=== PATIENT | male | born 1965 | race Caucasian/White ===

== ENCOUNTER 2017-04-07 12:59 | Emergency (ER) | payer BC ==
[2017-04-07 13:25] VITALS: BP 148/93
--- NOTE | 2017-04-07 14:36 | RAD ---
INDICATION: Right hand injury COMPARISON: None TECHNIQUE: AP, lateral, and oblique views were obtained. FINDINGS: The bony structures, joint spaces, and soft tissues are normal for age. IMPRESSION: NEGATIVE EXAMINATION.
--- NOTE | 2017-04-07 14:52 | UC ---
Upper Extremity HPI - HPI Summary HPI Summary: This is a 51 yo male with HTN, CA, GERD, neuropathy who presents for evaluation of a R hand injury. He injured the hand ~1 week ago. He had a bad dream that there was a home intruder and punched the dresser. His hand became severely swollen and painful. There is a laceration over his 3rd MCPJ that he has been treating with antibiotic ointment and covering with a Bandaid. Denies increasing redness, fever or chills. - History of Current Complaint Chief Complaint: UCUpperExtremity Stated Complaint: HAND INJURY Time Seen by Provider: 04/07/17 14:12 - Allergies/Home Medications Allergies/Adverse Reactions: Allergies Allergy/AdvReac Type Severity Reaction Status Date / Time Levofloxacin [From Levaquin] Allergy Severe numbness Verified 01/14/16 06:22 in arm, chest pain PMH/Surg Hx/FS Hx/Imm Hx Cardiovascular History: Hypertension GI/ History: Gastroesophageal Reflux Neurological History: Other Other Neurological History: neuropathy Cancer History: Other Other Cancer History: unspecified - Surgical History Surgical History: Yes Surgery Procedure, Year, and Place: Skin cancer removed; tonsillectomy. LASIK EYE SURGERY. EGD AND COLONOSCOPY - Family History Known Family History: Positive: Cardiac Disease, Diabetes - Social History Alcohol Use: Occasionally Substance Use Type: None Smoking Status (MU): Never Smoked Tobacco Review of Systems Constitutional: Negative Skin: Negative Eyes: Negative ENT: Negative Respiratory: Negative Cardiovascular: Negative Gastrointestinal: Negative Genitourinary: Negative Motor: Negative Neurovascular: Negative Musculoskeletal: Arthralgia Neurological: Negative Psychological: Negative All Other Systems Reviewed And Are Negative: Yes Physical Exam Triage Information Reviewed: Yes Appearance: Well-Appearing Vital Signs: Initial Vital Signs Temp 98.5 F 04/07/17 13:20 Pulse 63 04/07/17 13:20 Resp 16 04/07/17 13:20 BP 148/93 04/07/17 13:20 Pulse Ox 100 04/07/17 13:20 Vital Signs Reviewed: Yes ENT Exam: Normal Neck exam: Normal Respiratory Exam: Normal Respiratory: Positive: Lungs clear. Negative: Crackles, Rhonchi, Wheezing Cardiovascular Exam: Normal Cardiovascular: Positive: RRR, No Murmur Abdominal Exam: Normal Musculoskeletal: Positive: ROM Intact, Other: - edema over the 3rd MCPJ with limited pain to palpation Neurological: Positive: Alert Psychological: Positive: Normal Response To Family Skin: Positive: Other - healing laceration over the 3rd MCPJ, no associated erythema or drainage Diagnostics - Laboratory Diagnostic Studies Completed/Ordered: XR hand - no fracture Upper Extremity Course/Dx - Course Course Of Treatment: This is a 51 yo male who sustained an injury to his R hand 1 week ago. XR negative and wound healing is appropriate. No change to management recommended at this time. - Differential Dx/Diagnosis Differential Diagnosis/HQI/PQRI: Arthritis, Bursitis, Fracture (Closed), Strain , Sprain Provider Diagnoses: 1. R Hand contusion Discharge - Discharge Plan Condition: Stable Disposition: HOME Patient Education Materials: Contusion in Adults (ED) Referrals: Gato Cr MD [Primary Care Provider] - If Needed Additional Instructions: Instructions: 1. Continue current wound care 2. No additional treatment necessary
== END 2017-04-07 14:48 | disposition home or self-care (01) ==
LOC: UCEAST 12:59
DX: S60.221D Contusion of right hand, subsequent encounter (principal); W22.03XD Walked into furniture, subsequent encounter
CPT/HCPCS: 99211; G0463

== ENCOUNTER 2018-08-16 11:31 | Emergency (ER) | payer BC ==
--- OUTSIDE RECORDS SUMMARY | 2018-08-16 11:37 | XMS REPORT | Continuity of Care Document ---
:1965 External Reference #:[id number] Author Name Benja Bryan Care Team Providers Name Role Phone Gato Cr MD Primary Care Physician Unavailable Payers Type Date Identification Numbers Payment Provider Subscriber Policy Number: [id number] [employer] Gladys Bell PayID: [id number] [address] [address] [place] [address] Advance Directives Description No Information Available Problems Date Description Provider Status Onset: 12/31/2013 Congenital spondylolisthesis Conor La M.D. 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 Active Onset: 09/01/2016 Restless legs Brenda Ding M.D. Active Onset: 07/12/2018 Arthralgia of the ankle and/or foot Jarod Echevarria M.D. 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 ETOH Use Occasionally consumes alcohol Recreational Drug Use Negative For Denies Drug Use Tobacco Use Start: Unknown Patient has never smoked Smoking Status Reviewed: 07/24/18 Patient has never smoked Allergies, Adverse Reactions, Alerts Date Description Reaction Status Severity Comments 12/31/2013 Levaquin Chest Pain Active Medications Medication Date Status Form Strength Qnty SIG Indications Ordering Provider Sol 09/07/ Active Caps DR 30mg 270ca 3 tabs by G60.8 Jarod 2015 Part ps mouth Chepe Echevarria daily Gabapentin 05/20/ Active Tablets 600mg 75tab 2.5 tabs G60.9 Jarod 2013 s by mouth Chepe Echevarria every day at bedtime as directed Prilosec / Active Capsules DR 20mg 90cap 1 by mouth Unknown 0000 s every day Benicar / Active Tablets 20mg 1 by mouth Unknown 0000 every day Simvastatin / Active Tablets 5mg 1 by mouth Unknown 0000 daily Ropinirole 09/01/ Hx Tablets 0.25mg 120ta 1-4 tabs G60.9 Brenda [facility] 2017 - bs by mouth Timur, 04/05/ every at M.D. 2017 at bedtime as directed Nasonex 12/31/ Hx Suspension 50mcg/Act 1 spray Conor Bryant 2013 - angel each Abhinav, 12/31/ side every M.D. 2013 day Gabapentin 12/31/ Hx Capsules 100mg 90cap 1 po qhs 356.9 Conor Bryant 2014 - s to start Pollack, and december.D. 2013 increase as tolerated to 2 po qhs then 3 po qhs or as needed to control pain up to 3 po tid prn Nasonex / Hx Suspension 50mcg/Act 1Mon 1 spray Unknown 0000 - angel each 12/31/ side every 2013 day Danica-D 12 / Hx Tablets ER 60-120mg 28tab take one Unknown Hour Allergy& 0000 - 12HR s tab by Congestion 12/31/ mouth 2013 twice a day as needed Meloxicam / Hx Tablets 15mg 1 by mouth Unknown 0000 - daily 2014 Zyrtec / Hx Capsules 10mg 1 by mouth Unknown Allergy 0000 - every day 2015 Immunizations Description No Information Available Vital Signs Date Vital Result Comment 07/24/2018 8:35am Height 72 inches 6'0" Weight 230.00 lb Heart Rate 60 /min BP Systolic Sitting 120 mmHg BP Diastolic Sitting 78 mmHg Pain Level 4 BMI (Body Mass Index) 31.2 kg/m2 07/12/2018 2:28pm Height 72 inches 6'0" Weight 229.00 lb Heart Rate 88 /min BP Systolic Sitting 118 mmHg large adult cuff left arm BP Diastolic Sitting 72 mmHg large adult cuff left arm Respiratory Rate 16 /min BMI (Body Mass Index) 31.1 kg/m2 04/06/2017 2:42pm Height 72 inches 6'0" Weight 220.00 lb Heart Rate 62 /min BP Systolic Sitting 132 mmHg BP Diastolic Sitting 80 mmHg Respiratory Rate 16 /min BMI (Body Mass Index) 29.8 kg/m2 09/01/2016 3:51pm Height 72 inches 6'0" Weight 230.00 lb Heart Rate 56 /min BP Systolic Sitting 136 mmHg BP Diastolic Sitting 90 mmHg Respiratory Rate 14 /min BMI (Body Mass Index) 31.2 kg/m2 09/07/2015 8:51am Height 72 inches 6'0" Weight 228.00 lb Heart Rate 60 /min BP Systolic Sitting 132 mmHg BP Diastolic Sitting 88 mmHg Respiratory Rate 14 /min BMI (Body Mass Index) 30.9 kg/m2 02/05/2015 2:55pm Height 72 inches 6'0" Heart Rate 64 /min BP Systolic Sitting 134 mmHg BP Diastolic Sitting 76 mmHg Respiratory Rate 16 /min 11/06/2014 3:33pm Height 72 inches 6'0" Weight 230.00 lb Heart Rate 69 /min BP Systolic 144 mmHg BP Diastolic 90 mmHg BMI (Body Mass Index) 31.2 kg/m2 10/14/2014 3:11pm Height 72 inches 6'0" Heart Rate 68 /min BP Systolic Sitting 124 mmHg BP Diastolic Sitting 82 mmHg Respiratory Rate 16 /min 10/02/2014 10:17am Height 72 inches 6'0" Weight 230.00 lb Heart Rate 72 /min BP Systolic Sitting 126 mmHg BP Diastolic Sitting 78 mmHg Respiratory Rate 16 /min BMI (Body Mass Index) 31.2 kg/m2 07/08/2014 1:11pm Height 72 inches 6'0" Weight 230.38 lb Heart Rate 68 /min BP Systolic Sitting 140 mmHg BP Diastolic Sitting 82 mmHg Respiratory Rate 16 /min BMI (Body Mass Index) 31.2 kg/m2 05/20/2014 10:04am Height 72 inches 6'0" Weight 227.00 lb Heart Rate 64 /min BP Systolic Sitting 130 mmHg BP Diastolic Sitting 80 mmHg Respiratory Rate 16 /min BMI (Body Mass Index) 30.8 kg/m2 12/31/2013 10:57am Height 72 inches 6'0" Weight 227.00 lb BP Systolic 132 mmHg BP Diastolic 88 mmHg Pain Level 3 legs, feet BMI (Body Mass Index) 30.8 kg/m2 Results Test Date Facility Test Result H/L Range Note Comp Metabolic Panel 03/20/2015 Sodium 137 mmol/L N 133-145 Potassium 4.5 mmol/L N 3.5-5.0 Chloride 104 mmol/L N 101-111 Co2 Carbon Dioxide 28 mmol/L N 22-32 Anion Gap 5 mmol/L N 2-11 Glucose 88 mg/dL N 70-100 Blood Urea Nitrogen 14 mg/dL N 6-24 Creatinine 1.17 mg/dL N 0.67-1.17 BUN/Creatinine Ratio 12.0 N 8-20 Calcium 9.4 mg/dL N 8.6-10.3 Total Protein 6.8 g/dL N 6.4-8.9 Albumin 4.6 g/dL N 3.2-5.2 Globulin 2.2 g/dL N 2-4 Albumin/Globulin Ratio 2.1 N 1-3 Total Bilirubin 0.60 mg/dL N 0.2-1.0 Alkaline Phosphatase 48 U/L N 34-104 Alt 26 U/L N 7-52 Ast 22 U/L N 13-39 Egfr Non- 66.0 N >60 Egfr 84.9 N >60 1 Laboratory test finding 03/20/2015 Lyme Disease Serology Negative N Negative 2 Laboratory test finding 06/27/2014 Methylmalonic Acid 0.19 nmol/mL N <= 0.40 3 [place] (Anti-Nuclear AB) Screen Negative N Negative Erythrocyte Sed Rate 9 mm/Hr N 0-14 C Reactive Protein 1.68 mg/L N < 5.00 4 Protein Electrophoresis 06/27/2014 Total Protein(Pep) 6.8 g/dL N 6.3 - 7.9 Albumin 3.7 g/dL N 3.4-4.7 Alpha-1 Globulin 0.2 g/dL N 0.1-0.3 Alpha-2 Globulin 0.8 g/dL N 0.6-1.0 Beta Globulin 1.0 g/dL N 0.7-1.2 Gamma Globulin 1.1 g/dL N 0.6-1.6 Albumin/Globulin Ratio 1.18 N Impression See Comment N 5 Ssa/SSB Abs Igg 06/27/2014 SS-A/Ro Antibody <0.2 U N 6 SS-B/La Antibody <0.2 U N 7 1 Because ethnic data is not always readily available, this report includes an eGFR for both -Americans and non- Americans. The National Kidney Disease Education Program (NKDEP) does not endorse the use of the MDRD equation for patients that are not between the ages of 18 and 70, are , have extremes of body size, muscle mass, or nutritional status, or are non- or non-. According to the National Kidney Foundation, irrespective of diagnosis, the stage of the disease is based on the level of kidney function: Stage Description GFR(mL/min/1.73 m(2)) 1 Kidney damage with normal or decreased GFR 90 2 Kidney damage with mild decrease in GFR 60-89 3 Moderate decrease in GFR 30-59 4 Severe decrease in GFR 15-29 5 Kidney failure <15 (or dialysis) 2 Serologic response to B. burgdorferi infection is not detected, but cannot rule out early infection during which low or undetectable antibody levels to B. burgdorferi may be present. If clinically indicated, a new serum specimen should be submitted in 7-14 days. Test Performed by: [place] [address] Public Health Worker: Sukhjinder Mcgowan II, M.D., Ph.D. 3 Test Performed by: [place] [address] Public Health Worker: Yonathan Sams M.D. 4 Acute inflammation: >10.00 5 RESULT: No apparent monoclonal protein on serum electrophoresis. Test Performed by: [place] [address] Public Health Worker: Yonathan Sams M.D. 6 REFERENCE VALUE <1.0 (Negative) 7 REFERENCE VALUE <1.0 (Negative) Test Performed by: [facility] - [address] [address] Public Health Worker: Yonathan Sams M.D. Procedures Date Code Description Status 10/14/2014 18855 Nerve Conduction 03-04 Studies Completed 07/08/2014 21716 Nerve Conduction 07-08 Studies Completed Encounters Type Date Location Provider Dx Diagnosis Office Visit 07/12/2018 [facility] Jarod Echevarria, G60.0 Hereditary motor 2:30p [facility] and sensory neuropathy G25.81 Restless legs syndrome M25.571 Pain in right ankle and joints of right foot Office Visit 04/06/2017 2:45p Oliva Booth G60.0 Hereditary motor [facility] Ding M.D. and sensory neuropathy G25.81 Restless legs syndrome Office Visit 09/01/2016 3:45p Oliva Booth G25.81 Restless legs [facility] Ding M.D. syndrome G60.0 Hereditary motor and sensory neuropathy Office Visit 09/07/2015 [place]/Oliva Booth G60.8 Other hereditary 8:45a [facility] Ding and idiopathic Pinion Staker neuropathies Office Visit 02/05/2015 Oliva Booth 356.9 Neuropathy 3:15p [facility] Ding M.D. Peripheral Hereditary Idiopathic Unspec Office Visit 11/06/2014 [facility] 724.02 Spinal Stenosis , 3:30p Of Jett Gomez M.D. Lumbar Region, W/O Neurogenic Claudication 724.4 Neuritis Or Radiculitis Thoracic Or Lumbosacral Unspec Office Visit 10/14/2014 3:00p Oliva Booth 356.9 Neuropathy [facility] Ding M.D. Peripheral Hereditary Idiopathic Unspec 724.4 Neuritis Or Radiculitis Thoracic Or Lumbosacral Unspec Office Visit 10/02/2014 10:15a Oliva Ding 724.2 Lumbago [facility] 356.8 Neuropathy Other Spec Idiopathic Peripheral Office 05/20/2014 Oliva Booth 356.9 Neuropathy Peripheral Visit 10:00a [facility] Ding M.D. Hereditary Idiopathic Unspec Office 12/31/2013 Neurosurgery Conor Bryant 756.12 Spondylolisthesis Visit 11:00a [facility] La M.D. Congenital 756.11 Spondylolysis Lumbosacral Region Congenital 356.9 Neuropathy Peripheral Hereditary Idiopathic Unspec Office Visit 07/01/2010 Neurosurgery Joaquin Booth 756.12 Spondylolisthesis 11:00a [facility] Powers M.D. Congenital Plan of Treatment Future Appointment(s):10/23/2018 8:00 am - Gato Gomez M.D. [facility]/10/2019 8:00 am - Jarod Echevarria M.D. at [facility]07/24/2018 - Gato Gomez M.D.G60.0 Hereditary motor and sensory neuropathyNew Xrays:Ankle Right 2VWS, Ordered: 07/24/18oot Right 2 VWS, Ordered: 07/24/18New Therapy:Rehab ReferralFollow up:3 months
[2018-08-16 11:58] VITALS: BP 148/87
--- NOTE | 2018-08-16 12:17 | UC ---
Respiratory Complaint HPI - HPI Summary HPI Summary: 52 yo male presents with flu like symptoms. He tells me that for the last 3-4 days he has been having fatigue, body aches, and a dry cough. His was seen this morning and dx'd with the flu - per pt. He is here requesting treatment for the flu. Has felt hot/cold, but has not taken his temperature. Denies SOB, chest pain, abdominal pain, n/v. - History of Current Complaint Chief Complaint: UCRespiratory Stated Complaint: CHEST CONGESTION COUGH Time Seen by Provider: 08/16/18 12:16 Hx Obtained From: Patient Onset/Duration: Gradual Onset Severity Initially: Mild Severity Currently: Mild Pain Intensity: 4 Character: Cough: Nonproductive - Allergies/Home Medications Allergies/Adverse Reactions: Allergies Allergy/AdvReac Type Severity Reaction Status Date / Time levofloxacin [From Levaquin] Allergy numbness Verified 08/16/18 11:59 and chest pain PMH/Surg Hx/FS Hx/Imm Hx Endocrine History: Dyslipidemia GI/ History: Gastroesophageal Reflux - Surgical History Surgical History: Yes Surgery Procedure, Year, and Place: Skin cancer removed; tonsillectomy. LASIK EYE SURGERY. EGD AND COLONOSCOPY - Family History Known Family History: Positive: Cardiac Disease, Diabetes - Social History Occupation: Employed Full-time Lives: With Family Alcohol Use: Occasionally Substance Use Type: None Smoking Status (MU): Never Smoked Tobacco Review of Systems All Other Systems Reviewed And Are Negative: Yes Constitutional: Positive: Fatigue, Other - Body aches Skin: Positive: Negative Eyes: Positive: Negative ENT: Positive: Negative Respiratory: Positive: Cough Cardiovascular: Positive: Negative Gastrointestinal: Positive: Negative Neurovascular: Positive: Negative Neurological: Positive: Negative Psychological: Positive: Negative Physical Exam - Summary Physical Exam Summary: GENERAL: NAD. WDWN. No pain distress. SKIN: No rashes, sores, lesions, or open wounds. HEENT: Head: AT/NC Eyes: EOM intact. Conjunctiva clear without inflammation or discharge. Ears: Hearing grossly normal. TMs intact, no bulging, erythema, or edema. Nose: Nasal mucosa pink and moist. NTTP maxillary and frontal sinus. Throat: Posterior oropharynx without exudates, erythema, or tonsillar enlargement. Uvula midline. NECK: Supple. Nontender. No lymphadenopathy. CHEST: CTAB. No r/r/w. No accessory muscle use. Breathing comfortably and in no distress. CV: RRR. Without m/r/g. Pulses intact. Cap refill <2seconds NEURO: Alert. PSYCH: Age appropriate behavior. Triage Information Reviewed: Yes Vital Signs: Initial Vital Signs Temp 99.5 F 08/16/18 11:56 Pulse 100 08/16/18 11:56 Resp 20 08/16/18 11:56 BP 148/87 08/16/18 11:56 Pulse Ox 97 08/16/18 11:56 Vital Signs Reviewed: Yes Diagnostic Evaluation - Laboratory O2 Sat by Pulse Oximetry: 97 Respiratory Course/Dx - Course Course Of Treatment: Given that his was positive for Flu A this morning - pt declined testing today. Will treat with tamiflu for presumptive flu. - Differential Dx/Diagnosis Provider Diagnosis: Influenza Discharge - Sign-Out/Discharge Documenting (check all that apply): Patient Departure All imaging exams completed and their final reports reviewed: No Studies - Discharge Plan Condition: Stable Disposition: HOME Prescriptions: Benzonatate CAP* [Tessalon 100 MG CAP*] 100 mg PO TID PRN #21 cap PRN Reason: Cough Oseltamivir CAP* [Tamiflu CAP*] 75 mg PO BID #10 cap Patient Education Materials: Influenza (DC) Forms: *Work Release Referrals: Gato Cr MD [Primary Care Provider] - Additional Instructions: If you develop a fever, shortness of breath, chest pain, new or worsening symptoms - please call your PCP or go to the ED. Your blood pressure was high at todays visit. Please see your primary provider within 4 weeks for recheck and re-evaluation. - Billing Disposition and Condition Condition: STABLE Disposition: Home
== END 2018-08-16 12:44 | disposition home or self-care (01) ==
LOC: UCEAST 11:31
DX: J11.1 Influenza due to unidentified influenza virus with other respiratory manifestations (principal); Z88.1 Allergy status to other antibiotic agents
CPT/HCPCS: 99212; G0463

== ENCOUNTER 2018-08-24 10:51 | Emergency (ER) | payer BC ==
[2018-08-24 10:58] VITALS: BP 153/91
--- NOTE | 2018-08-24 11:08 | UC ---
Throat Pain/Nasal Laci HPI - HPI Summary HPI Summary: 52 yo male presents with sinus pain/pressure/congestion, dry cough, and b/l eye irritation for 1 week. He was treated for the flu recently because his was diagnosed and he developed fatigue and body aches. He was given tamiflu and his flu symptoms have significantly improved, but has developed the above symptoms. He is taking OTC mucinex with no relief. Denies fever, chills, sore throat, SOB , rash, n/v. - History of Current Complaint Chief Complaint: UCRespiratory Stated Complaint: SINUS ISSUE Time Seen by Provider: 08/24/18 11:08 Hx Obtained From: Patient Onset/Duration: Gradual Onset Severity: Mild Pain Intensity: 4 Pain Scale Used: 0-10 Numeric - Allergies/Home Medications Allergies/Adverse Reactions: Allergies Allergy/AdvReac Type Severity Reaction Status Date / Time levofloxacin [From Levaquin] Allergy numbness Verified 08/24/18 10:59 and chest pain PMH/Surg Hx/FS Hx/Imm Hx Endocrine History: Dyslipidemia GI/ History: Gastroesophageal Reflux - Surgical History Surgical History: Yes Surgery Procedure, Year, and Place: Skin cancer removed; tonsillectomy. LASIK EYE SURGERY. EGD AND COLONOSCOPY - Family History Known Family History: Positive: Cardiac Disease, Diabetes - Social History Occupation: Employed Full-time Lives: With Family Alcohol Use: Occasionally Substance Use Type: None Smoking Status (MU): Never Smoked Tobacco Review of Systems All Other Systems Reviewed And Are Negative: Yes Constitutional: Positive: Negative Skin: Positive: Negative Eyes: Positive: Negative ENT: Positive: Nasal Discharge, Sinus Congestion, Sinus Pain/Tenderness Respiratory: Positive: Cough Cardiovascular: Positive: Negative Gastrointestinal: Positive: Negative Neurovascular: Positive: Negative Neurological: Positive: Negative Psychological: Positive: Negative Physical Exam - Summary Physical Exam Summary: GENERAL: NAD. WDWN. No pain distress. SKIN: No rashes, sores, lesions, or open wounds. HEENT: Head: AT/NC Eyes: EOM intact. PERRLA. B/L mild scleral injection. Conjunctiva clear without inflammation or discharge. Ears: Hearing grossly normal. TMs intact, no bulging, erythema, or edema. Nose: Nasal mucosa mildly swollen and erythematous with yellow discharge. TTP maxillary and frontal sinus. Positive post nasal drip Throat: Posterior oropharynx without exudates, erythema, or tonsillar enlargement. Uvula midline. NECK: Supple. Nontender. No lymphadenopathy. CHEST: CTAB. No r/r/w. No accessory muscle use. Breathing comfortably and in no distress. CV: RRR. Without m/r/g. Pulses intact. NEURO: Alert. PSYCH: Age appropriate behavior. Triage Information Reviewed: Yes Vital Signs: Initial Vital Signs Temp 98 F 08/24/18 10:55 Pulse 97 08/24/18 10:55 Resp 17 08/24/18 10:55 BP 153/91 08/24/18 10:55 Pulse Ox 99 08/24/18 10:55 Vital Signs Reviewed: Yes Throat Pain/Nasal Course/Dx - Course Course Of Treatment: Sinusitis. B/L eye irritation without evidence of infectious process. - Differential Dx/Diagnosis Provider Diagnosis: Sinusitis, Eye irritation Discharge - Sign-Out/Discharge Documenting (check all that apply): Patient Departure All imaging exams completed and their final reports reviewed: No Studies - Discharge Plan Condition: Stable Disposition: HOME Prescriptions: Amoxicillin PO (*) [Amoxicillin 875 MG (*)] 875 mg PO BID #14 tab Codeine Phosphate/Guaifenesin [Guaifen-Codeine 100-10 mg/5 ml] 5 ml PO BEDTIME PRN #35 ml MDD 5mL PRN Reason: Cough Naphazoline/Pheniramine OPTH* [Naphcon-A*] 1 drop BOTH EYES BID #1 btl Patient Education Materials: Sinusitis (ED) Referrals: Gato Cr MD [Primary Care Provider] - Additional Instructions: If you develop a fever, shortness of breath, chest pain, new or worsening symptoms - please call your PCP or go to the ED. Your blood pressure was high at todays visit. Please see your primary provider within 4 weeks for recheck and re-evaluation. - Billing Disposition and Condition Condition: STABLE Disposition: Home - Attestation Statements Provider Attestation: Per institutional requirements, I have reviewed the chart, however, I was not consulted specifically or made aware of this patient by the midlevel provider. I did not personally evaluate, interact with , or disposition this patient.
== END 2018-08-24 11:23 | disposition home or self-care (01) ==
LOC: UCEAST 10:51
DX: J32.9 Chronic sinusitis, unspecified (principal); H57.89 Other specified disorders of eye and adnexa; Z88.1 Allergy status to other antibiotic agents
CPT/HCPCS: 99212; G0463